=== PATIENT | female | born 1995 | race African-American/Black ===

== ENCOUNTER 2018-12-05 03:15 | Emergency (ER) | payer OTHER ==
[~2018-12-05] VITALS: Ht 167.6 cm; Wt 86.2 kg
[2018-12-05 03:15] VITALS: BP 132/83
[2018-12-05] MEDS ORDERED: ACET-704 PO (03:32)
[2018-12-05] MEDS ORDERED: AMOX500T PO (03:32)
[2018-12-05] MEDS ORDERED: MELO7.5T5 PO (03:32)
--- NOTE | 2018-12-05 03:35 | ED.ADGEN ---
Adult General Chief Complaint Chief Complaint dental pain HPI HPI 23 years old female presented to the emergency department with chronic dental pain that is getting worse on the right lower side Review of Systems Review of Systems Constitutional: Denies fever or chills [] Eyes: Denies change in visual acuity, redness, or eye pain [] HENT: Denies nasal congestion or sore throat [] Respiratory: Denies cough or shortness of breath [] Cardiovascular: No additional information not addressed in HPI [] GI: Denies abdominal pain, nausea, vomiting, bloody stools or diarrhea [] : Denies dysuria or hematuria [] Musculoskeletal: Denies back pain or joint pain [] Integument: Denies rash or skin lesions [] Neurologic: Denies headache, focal weakness or sensory changes [] Endocrine: Denies polyuria or polydipsia [] All other systems were reviewed and found to be within normal limits, except as documented in this note. Physical Exam Physical Exam Constitutional: Well developed, well nourished, no acute distress, non-toxic appearance. [] HENT: Normocephalic, atraumatic, bilateral external ears normal, oropharynx moist, multiple cavities nose normal. [] Eyes: PERRLA, EOMI, conjunctiva normal, no discharge. [] Neck: Normal range of motion, no tenderness, supple, no stridor. [] Cardiovascular:Heart rate regular rhythm, no murmur [] Lungs & Thorax: Bilateral breath sounds clear to auscultation [] Abdomen: Bowel sounds normal, soft, no tenderness, no masses, no pulsatile masses. [] Skin: Warm, dry, no erythema, no rash. [] Back: No tenderness, no CVA tenderness. [] Extremities: No tenderness, no cyanosis, no clubbing, ROM intact, no edema. [] Neurologic: Alert and oriented X 3, normal motor function, normal sensory function, no focal deficits noted. [] Psychologic: Affect normal, judgement normal, mood normal. [] EKG EKG [] Radiology/Procedures Radiology/Procedures [] Course & Med Decision Making Course & Med Decision Making Pertinent Labs and Imaging studies reviewed. (See chart for details) [] Final Impression Final Impression [] Problems: (1) Pain, dental Dragon Disclaimer Dragon Disclaimer This electronic medical record was generated, in whole or in part, using a voice recognition dictation system. PADMINI,OSAMA MD Dec 05, 2018 03:35
[2018-12-05] MEDS ORDERED: HYDROcodone/APAP 5/325MG 1 TAB TABLET ONE (03:45)
[2018-12-05] MEDS ORDERED: IBUPROFEN 600 MG TABLET. PO ONE (03:45)
[2018-12-05] MEDS: IBUPROFEN 600 MG TABLET. PO ONE (03:49)
[2018-12-05] MEDS: HYDROcodone/APAP 5/325MG 1 TAB TABLET PO ONE (03:49)
== END 2018-12-05 03:50 | disposition home or self-care (01) ==
LOC: ER 03:15
DX: K08.89 Other specified disorders of teeth and supporting structures (principal); G89.29 Other chronic pain
CPT/HCPCS: 99283

== ENCOUNTER 2019-04-03 23:30 | Emergency (ER) | payer OTHER ==
[~2019-04-03] VITALS: Ht 167.6 cm; Wt 97.1 kg
[~2019-04-03 23:30] MED LIST: ACET-704 PO; AMOX500T PO; MELO7.5T5 PO
[2019-04-04] MEDS ORDERED: ALPR0.25 PO (00:33)
--- NOTE | 2019-04-04 00:33 | PHYS DOC ---
Past History Past Medical History: Anxiety, Asthma, Hyperthyroid Past Surgical History: Other Alcohol Use: None Drug Use: None Adult General Chief Complaint Chief Complaint: ANXIETY/PANIC ATTACK HPI HPI Patient is a 23-year-old female presents with anxiety. This is been present for the past several weeks. Patient recently moved to [facility] from [facility] and has not established care locally yet. She has a history of being on benzodiazepines for anxiety. This was prescribed one time due to patient not following up. She denies any suicidal or homicidal ideation. Denies any nausea or vomiting. Denies any hallucinations. Notes decreased sleeping.[] Review of Systems Review of Systems Constitutional: Denies fever or chills [] Eyes: Denies change in visual acuity, redness, or eye pain [] HENT: Denies nasal congestion or sore throat [] Respiratory: Denies cough or shortness of breath [] Cardiovascular: No chest pain or palpitations[] GI: Denies abdominal pain, nausea, vomiting, bloody stools or diarrhea [] : Denies dysuria or hematuria [] Musculoskeletal: Denies back pain or joint pain [] Integument: Denies rash or skin lesions [] Neurologic: Denies headache, focal weakness or sensory changes [] Endocrine: Denies polyuria or polydipsia [] All other systems were reviewed and found to be within normal limits, except as documented in this note. Allergies Allergies Allergies Coded Allergies Type Severity Reaction Last Updated Verified naproxen Allergy Severe Anaphylaxis 04/03/19 Yes aloe Allergy Unknown Rash 04/03/19 Yes Physical Exam Physical Exam Constitutional: Well developed, well nourished, no acute distress, non-toxic appearance. Smiling [] HENT: Normocephalic, atraumatic, bilateral external ears normal, oropharynx moist, no oral exudates, nose normal. [] Eyes: PERRLA, EOMI, conjunctiva normal, no discharge. [] Neck: Normal range of motion, no tenderness, supple, no stridor. [] Cardiovascular:Heart rate regular rhythm, no murmur [] Lungs & Thorax: Bilateral breath sounds clear to auscultation [] Abdomen: Not examined. [] Skin: Warm, dry, no erythema, no rash. [] Back: No tenderness, no CVA tenderness. [] Extremities: No tenderness, no cyanosis, no clubbing, ROM intact, no edema. [] Neurologic: Alert and oriented X 3, normal motor function, normal sensory function, no focal deficits noted. [] Psychologic: Affect normal, judgement normal, mood normal. No suicidal or homicidal ideation. [] Current Patient Data Vital Signs Vital Signs Date Time Temp Pulse Resp B/P (MAP) Pulse Ox O2 Delivery O2 Flow Rate FiO2 04/03/19 23:46 98.4 104 18 99 Room Air EKG EKG [] Radiology/Procedures Radiology/Procedures [] Course & Med Decision Making Course & Med Decision Making Pertinent Labs and Imaging studies reviewed. (See chart for details) Medical decision making: Patient without any suicidal or homicidal ideation. Giving her points of contact to include the [facility] as well as other points of contact for medical and dental care within the [facility]. We'll provide a short course of benzodiazepines. [] Dragon Disclaimer Dragon Disclaimer This electronic medical record was generated, in whole or in part, using a voice recognition dictation system. Departure Departure: Impression: Primary Impression: Anxiety disorder Disposition: HOME, SELF-CARE Condition: IMPROVED Referrals: PCP,FARHAN (PCP) Patient Instructions: Anxiety and Panic Attacks Additional Instructions: Follow-up with your regular doctor in 2 days. If you do not have a regular doctor list of local clinics to include the [facility] will be provided. Return to the ER if you have thoughts about hurting yourself, anyone else, or any other concerns. Scripts Alprazolam (XANAX) 0.25 Mg Tablet 1 TAB PO BID for anxiety, #10 TAB Prov: VINCE MCKEON DO 04/04/19 Problem Qualifiers Primary Impression: Anxiety disorder Anxiety disorder type: unspecified anxiety disorder Qualified Codes: F41.9 - Anxiety disorder, unspecified VINCE MCKEON DO Apr 04, 2019 00:33
[2019-04-04 00:48] VITALS: BP 139/71
== END 2019-04-04 00:54 | disposition home or self-care (01) ==
LOC: ER 23:30
DX: F41.9 Anxiety disorder, unspecified (principal); J45.909 Unspecified asthma, uncomplicated; E03.9 Hypothyroidism, unspecified; Z88.8 Allergy status to other drugs, medicaments and biological substances; Z91.048 Other nonmedicinal substance allergy status
CPT/HCPCS: 99284

== ENCOUNTER 2020-10-01 20:19 | Emergency (ER) | payer MEDICAID, OTHER ==
[~2020-10-01] VITALS: Ht 167.6 cm; Wt 103.0 kg
[~2020-10-01 20:19] MED LIST changes: +ALPR0.25 PO
[2020-10-01 20:38] VITALS: BP 155/98
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
[2020-10-01 22:15] LABS: BACTERIA,URINE 0 /HPF (0-FEW); BILIRUBIN,URINE NEG (NEG); CLARITY,URINE CLEAR; COLOR,URINE YELLOW; GLUCOSE,URINE NEG (NEG); NITRITE,URINE NEG (NEG); RBC,URINE OCC /HPF (0-2); SQUAMOUS EPITHELIAL CELL,UR FEW /LPF; UROBILINOGEN,URINE 0.2 mg/dL (0.2 mg/dL); WBC,URINE OCC /HPF (0-4)
[2020-10-01] MEDS ORDERED: cefTRIAXone IM 1 GM VIAL IM ONE (22:30)
[2020-10-01] MEDS ORDERED: AZITHROMYCIN 250 MG TABLET. PO ONE (22:30)
[2020-10-01] MEDS ORDERED: metroNIDAZOLE 500 MG TABLET PO ONE (22:30)
== END 2020-10-01 22:32 | disposition home or self-care (01) ==
LOC: ER 20:19
DX: A64 Unspecified sexually transmitted disease (principal); Z88.8 Allergy status to other drugs, medicaments and biological substances
CPT/HCPCS: 81001; 81025; 87491; 87591; 96372; 99283; J0696; Q0111

== ENCOUNTER 2021-01-23 00:24 | Emergency (ER) | payer MEDICAID ==
[~2021-01-23] VITALS: Ht 167.6 cm; Wt 103.0 kg
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
[2021-01-23] MEDS ORDERED: IPRA3AMP29 NEB (01:02)
[2021-01-23] MEDS ORDERED: PRED50TA PO (01:02)
[2021-01-23 01:18] VITALS: BP 148/90
[2021-01-23] MEDS ORDERED: predniSONE 10 MG TABLET PO ONE (01:30)
[2021-01-23] MEDS ORDERED: ALBUTEROL SULFATE 8GM INHALER. INH ONE (01:30)
== END 2021-01-23 01:20 | disposition home or self-care (01) ==
LOC: ER 00:24
DX: J45.901 Unspecified asthma with (acute) exacerbation (principal); Z88.8 Allergy status to other drugs, medicaments and biological substances
CPT/HCPCS: 94640; 99283; J7512; 94664

== ENCOUNTER 2021-02-04 22:04 | Emergency (ER) | payer MEDICAID ==
[~2021-02-04] VITALS: Ht 167.6 cm; Wt 99.4 kg
[~2021-02-04 22:04] MED LIST changes: +IPRA3AMP29 NEB; +PRED50TA PO
[2021-02-04 22:59] VITALS: BP 143/90
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
== END 2021-02-05 00:10 | disposition left against medical advice (07) ==
LOC: ER 22:04
DX: Z20.2 Contact with and (suspected) exposure to infections with a predominantly sexual mode of transmission (principal); Z53.21 Procedure and treatment not carried out due to patient leaving prior to being seen by health care provider; J45.909 Unspecified asthma, uncomplicated; Z88.8 Allergy status to other drugs, medicaments and biological substances
CPT/HCPCS: 81025

== ENCOUNTER 2021-02-06 00:57 | Emergency (ER) | payer MEDICAID ==
[~2021-02-06] VITALS: Ht 167.6 cm; Wt 99.4 kg
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
[2021-02-06 01:38] LABS: AMPHETAMINE/METHAMPHETAMINE NEG (NEG); BARBITURATES NEG (NEG); BENZODIAZEPINES NEG (NEG); CANNABINOIDS POS (NEG); COCAINE POS (NEG); METHADONE NEG (NEG); OPIATES NEG (NEG); PHENCYCLIDINE NEG (NEG)
[2021-02-06 01:42] LABS: BILIRUBIN,URINE SMALL (NEG); CLARITY,URINE CLEAR; COLOR,URINE YELLOW; GLUCOSE,URINE NEG (NEG); NITRITE,URINE NEG (NEG)
[2021-02-06 01:43] LABS: BACTERIA,URINE 0 /HPF (0-FEW); SQUAMOUS EPITHELIAL CELL,UR OCC /LPF; WBC,URINE 0 /HPF (0-4)
[2021-02-06 02:35] VITALS: BP 124/68
[2021-02-06] MEDS ORDERED: PHENAZOPYRIDINE 200 MG TABLET. PO ONE (03:00)
== END 2021-02-06 02:35 | disposition home health service (06) ==
LOC: ER 01:07
DX: N39.0 Urinary tract infection, site not specified (principal); J45.909 Unspecified asthma, uncomplicated; R30.0 Dysuria; F19.10 Other psychoactive substance abuse, uncomplicated; Z88.6 Allergy status to analgesic agent
CPT/HCPCS: 36415; 80307; 81001; 87491; 87591; 99283-25

== ENCOUNTER 2021-03-24 02:06 | Emergency (ER) | payer MEDICAID ==
[~2021-03-24] VITALS: Ht 167.6 cm; Wt 102.2 kg
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
[2021-03-24 03:01] LABS: BARBITURATES NEG (NEG); BENZODIAZEPINES NEG (NEG); CANNABINOIDS POS (NEG); COCAINE NEG (NEG); METHADONE NEG (NEG); OPIATES NEG (NEG); PHENCYCLIDINE NEG (NEG)
[2021-03-24 03:02] LABS: BACTERIA,URINE 0 /HPF (0-FEW); BILIRUBIN,URINE NEG (NEG); CLARITY,URINE CLEAR; COLOR,URINE YELLOW; GLUCOSE,URINE NEG (NEG); NITRITE,URINE NEG (NEG); RBC,URINE OCC /HPF (0-2); SQUAMOUS EPITHELIAL CELL,UR OCC /LPF; UROBILINOGEN,URINE 0.2 mg/dL (0.2 mg/dL); WBC,URINE OCC /HPF (0-4)
[2021-03-24 03:06] LABS: AMPHETAMINE/METHAMPHETAMINE NEG (NEG)
[2021-03-24] MEDS ORDERED: CONTRAST GIVEN. MC PRN (03:30)
[2021-03-24] MEDS ORDERED: MUPIROCIN 2% TOPICAL OINTMENT 22GM TUBE. TP ONE (03:30)
[2021-03-24] MEDS ORDERED: oxyCODONE/APAP 5/325 1 TAB TABLET PO ONE (03:30)
[2021-03-24] MEDS ORDERED: IV RINGERS SOLUTION,LACTATED 1,000 ML IV SCH (03:30)
--- NOTE | 2021-03-24 03:39 | EKG ---
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
[2021-03-24 03:54] LABS: HEMOGLOBIN ISTAT 14.3 gm/dL; POTASSIUM ISTAT 4.3 mmol/L (3.5-5.0)
[2021-03-24] MEDS ORDERED: IOHEXOL 300 MG/ML 75 ML VIAL. IV ONE (04:00)
[2021-03-24 04:11] LABS: BASO # 0.1 x10^3/uL (0.0-0.2); BASO % 1 % (0-3); EOS % 0 % (0-3); HEMATOCRIT 39.1 % (36.0-47.0); HEMOGLOBIN 13.5 g/dL (12.0-15.5); LYMPH # 2.1 x10^3/uL (1.0-4.8); LYMPH % 15 % (24-48); MEAN CORPUSCULAR HEMOGLOBIN 32 pg (25-35); MEAN CORPUSCULAR HGB CONC 34 g/dL (31-37); MEAN CORPUSCULAR VOLUME 94 fL (79-100); MONO # 0.4 x10^3/uL (0.0-1.1); MONO % 3 % (0-9); NEUT # 11.1 x10^3uL (1.8-7.7); NEUT % 81 % (31-73); PLATELET COUNT 341 x10^3/uL (140-400); RED BLOOD COUNT 4.18 x10^6/uL (3.50-5.40); RED CELL DISTRIBUTION WIDTH 12.9 % (11.5-14.5); WHITE BLOOD COUNT 13.7 x10^3/uL (4.0-11.0)
[2021-03-24] MEDS ORDERED: IV NORMAL SALINE 50ML 50 ML ONE (04:49)
[2021-03-24] MEDS ORDERED: cefTRIAXone SODIUM 1 GM VIAL ONE (04:49)
[2021-03-24] MEDS ORDERED: metroNIDAZOLE 500 MG TABLET PO ONE (05:00)
[2021-03-24] MEDS ORDERED: AZITHROMYCIN 250 MG TABLET. PO ONE (05:00)
[2021-03-24] MEDS ORDERED: ONDANSETRON PF 4 MG/2 ML VIAL. IVP ONE (05:00)
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
[2021-03-24] MEDS ORDERED: CEPH750C9 PO (05:27)
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
[2021-03-24 05:35] VITALS: BP 143/85
[2021-03-24 09:54] LABS: ALBUMIN 4.1 g/dL (3.4-5.0); DIRECT BILIRUBIN 0.1 mg/dL (0.0-0.2); TOTAL BILIRUBIN 0.2 mg/dL (0.2-1.0); TOTAL PROTEIN 7.9 g/dL (6.4-8.2)
== END 2021-03-24 05:34 | disposition home or self-care (01) ==
LOC: ER 02:06
DX: S00.33XA Contusion of nose, initial encounter (principal); S20.219A Contusion of unspecified front wall of thorax, initial encounter; S40.022A Contusion of left upper arm, initial encounter; S40.021A Contusion of right upper arm, initial encounter; S80.12XA Contusion of left lower leg, initial encounter; S80.11XA Contusion of right lower leg, initial encounter; R04.0 Epistaxis; J45.909 Unspecified asthma, uncomplicated; Z87.440 Personal history of urinary (tract) infections; Z88.6 Allergy status to analgesic agent; Z88.8 Allergy status to other drugs, medicaments and biological substances; Y08.89XA Assault by other specified means, initial encounter; Y93.89 Activity, other specified; Y92.89 Other specified places as the place of occurrence of the external cause; Y99.8 Other external cause status
CPT/HCPCS: 36415; 70450; 70486; 71046; 71260; 72125; 74177; 80047; 80076; 80307; 81001; 81025; 82150; 82550; 83690; 84484; 85025; 87491; 87591; 93005; 96361; 96365; 99285; J0696; J7120; Q9967

== ENCOUNTER 2021-08-21 18:47 | Emergency (ER) | payer MEDICAID ==
[~2021-08-21] VITALS: Ht 167.6 cm; Wt 102.2 kg
[~2021-08-21 18:47] MED LIST changes: +CEPH750C9 PO
[2021-08-21 19:05] VITALS: BP 131/90
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
[2021-08-21] MEDS ORDERED: CEPH500C PO (19:28)
[2021-08-21] MEDS ORDERED: CEPHALEXIN 250 MG CAPSULE PO ONE (19:30)
[2021-08-21] MEDS ORDERED: ACETAMINOPHEN 500 MG TABLET PO ONE (19:30)
[2021-08-21] MEDS ORDERED: oxyCODONE/APAP 5/325 1 TAB TABLET PO ONE (20:00)
== END 2021-08-22 19:50 | disposition home or self-care (01) ==
LOC: ER 18:47
DX: K02.9 Dental caries, unspecified (principal); J45.909 Unspecified asthma, uncomplicated; S02.5XXA Fracture of tooth (traumatic), initial encounter for closed fracture; X58.XXXA Exposure to other specified factors, initial encounter; Y93.89 Activity, other specified; Y92.89 Other specified places as the place of occurrence of the external cause; Y99.8 Other external cause status
CPT/HCPCS: 99283-25

== ENCOUNTER → 2021-10-27 | Outpatient (CLI) | payer MEDICAID ==
[~2021-10-27] MED LIST changes: +CEPH500C PO
== END ==
LOC: LAB 15:42
PROVIDERS: ATTEND Obstetrics & Gynecology
DX: N92.6 Irregular menstruation, unspecified (principal)
CPT/HCPCS: 36415; 84702